=== PATIENT | male | born 1955 | race Hispanic/Latino ===

== ENCOUNTER 2017-07-21 03:31 | Emergency (ER) | payer OTHER ==
[2017-07-21] MEDS ORDERED: Ketorolac Tromethamine 60 MG/2 ML VIAL ONE (03:55)
== END 2017-07-21 04:15 | disposition home or self-care (01) ==
LOC: BURERS 03:31
DX: M43.6 Torticollis (principal); I10 Essential (primary) hypertension; F17.210 Nicotine dependence, cigarettes, uncomplicated; Z79.82 Long term (current) use of aspirin
CPT/HCPCS: 96372; J1885